=== PATIENT | female | born 1955 | race Asian ===

== ENCOUNTER 2018-01-19 15:03 | Outpatient (CLI) | payer OTHER ==
[2018-01-20] MEDS ORDERED: PHENYTOIN EX100 MG PO ×2 (03:45→13:49)
[2018-01-20] MEDS ORDERED: DIPHENHYDRAMINE25 MG PO (03:47)
[2018-01-20] MEDS ORDERED: RISPERDAL4 MG PO (03:48)
[2018-01-20] MEDS ORDERED: LEVE250T PO (13:51)
[2018-01-20] MEDS ORDERED: DESCOVY 200-251 TAB PO (13:52)
[2018-01-20] MEDS ORDERED: ISENTRESS400 MG PO (13:54)
[2018-01-20] MEDS ORDERED: PROVENTIL108 MCG/AC INH (13:59)
[2018-01-20] MEDS ORDERED: ISENTRESS HD600 MG PO (14:01)
[2018-01-20] MEDS ORDERED: ODEFSEY PO (14:02)
== END 2018-01-19 15:07 | disposition short-term general hospital (02) ==
LOC: AMB 15:03
DX: G40.89 Other seizures (principal)
CPT/HCPCS: A0425; A0427

== ENCOUNTER 2018-01-19 15:08 | Inpatient (IN) | payer OTHER ==
[~2018-01-19] VITALS: Ht 162.6 cm; Wt 59.6 kg
[2018-01-19] VITALS (12 sets, daily range): BP systolic 115–184; BP diastolic 63–108; TEMP 98–100.2
[2018-01-19 16:04] LABS: PLATELET COUNT 240 K/uL (152-353)
[2018-01-19 16:10] LABS: POTASSIUM 3.8 mmol/L (3.6-5.2); SODIUM 135 mmol/L (136-145)
[2018-01-20] VITALS (25 sets, daily range): BP systolic 107–135; BP diastolic 58–87; TEMP 98–100.1; Ht 162.6 cm; Wt 59.6 kg
[2018-01-20 00:40] LABS: PARTIAL THROMBOPLASTIN TIME 26.9 SECONDS (24.5-33.6)
[2018-01-20] MEDS ORDERED: PHENYTOIN EX100 MG PO ×2 (03:45→13:49)
[2018-01-20] MEDS ORDERED: DIPHENHYDRAMINE25 MG PO (03:47)
[2018-01-20] MEDS ORDERED: RISPERDAL4 MG PO (03:48)
[2018-01-20 06:20] LABS: PLATELET COUNT 189 K/uL (152-353)
[2018-01-20 06:29] LABS: POTASSIUM 3.6 mmol/L (3.6-5.2)
[2018-01-20] MEDS ORDERED: LEVE250T PO (13:51)
[2018-01-20] MEDS ORDERED: DESCOVY 200-251 TAB PO (13:52)
[2018-01-20] MEDS ORDERED: ISENTRESS400 MG PO (13:54)
[2018-01-20] MEDS ORDERED: PROVENTIL108 MCG/AC INH (13:59)
[2018-01-20] MEDS ORDERED: ISENTRESS HD600 MG PO (14:01)
[2018-01-20] MEDS ORDERED: ODEFSEY PO (14:02)
[2018-01-21] VITALS (13 sets, daily range): BP systolic 129–148; BP diastolic 63–93; TEMP 97.9–98.6
[2018-01-21 08:14] LABS: PLATELET COUNT 170 K/uL (152-353)
[2018-01-22] VITALS (11 sets, daily range): BP systolic 118–147; BP diastolic 67–97; TEMP 98.1–98.6
[2018-01-22 05:23] LABS: PLATELET COUNT 168 K/uL (152-353)
[2018-01-22 05:52] LABS: POTASSIUM 3.6 mmol/L (3.6-5.2)
[2018-01-23 03:40] VITALS: BP 119/60; TEMP 98.4
[2018-01-23 08:00] VITALS: BP 140/76; TEMP 98.3
[2018-01-23 08:43] LABS: PLATELET COUNT 184 K/uL (152-353)
[2018-01-23 08:45] LABS: POTASSIUM 3.4 mmol/L (3.6-5.2)
[2018-01-23 09:00] VITALS: BP 140/76; TEMP 98
[2018-01-23 10:00] VITALS: BP 133/82
[2018-01-23 12:00] VITALS: BP 130/80; TEMP 98.6
== END 2018-01-23 17:35 | disposition left against medical advice (07) | DRG 101 ==
LOC: EDBD 15:08 → ED 15:08 → MED/SURG 20:00 → ICU 22:45 → MED/SURG 01-23 13:35
PROVIDERS: Emergency Medicine; ADMIT Family Medicine
DX: G40.802 Other epilepsy, not intractable, without status epilepticus (principal); F14.188 Cocaine abuse with other cocaine-induced disorder; Z91.14 Patient's other noncompliance with medication regimen; E87.6 Hypokalemia; R55 Syncope and collapse; K21.9 Gastro-esophageal reflux disease without esophagitis; J40 Bronchitis, not specified as acute or chronic
CPT/HCPCS: 36415; 80048; 80053; 80185; 80307; 80320; 80329; 81000; 82550; 84484; 85027; 85610; 85730; 93005; 94760; 96365; 96374; 96375; 99220; 99284; G0379; J1165; J1650; J2310; J2405